=== PATIENT | male | born 1970 | race Caucasian/White ===

== ENCOUNTER 2019-03-14 17:12 | Emergency (ER) | payer OTHER ==
[~2019-03-14] VITALS: Ht 175.3 cm; Wt 86.4 kg
[~2019-03-14 17:12] MED LIST: ASPI-535 PO; GABA300C PO; GLIP10TA14 PO; INSU100C SC; LANT3I SC
[2019-03-14 17:14] VITALS: Ht 175.3 cm; Wt 86.4 kg
[2019-03-14] MEDS ORDERED: INSULIN LISPRO 100 UNIT/ML VIAL SC ONE (17:30)
[2019-03-14] MEDS ORDERED: ACCU-CHEK XX ONE (17:30)
--- NOTE | 2019-03-14 18:14 | ERD ---
ER Documentation Chief Complaint Chief Complaint PT STATES HE FEELS WEAK AND TIRED AND MIGHT HAVE HIGH SUGAR HPI This is a 48-year-old male who has a history of diabetes who was in [facility] for the past 48 hours. He did receive insulin yesterday but none today. He says that he feels like his blood sugars been high because he feels a bit weak. His fingerstick was elevated and he was sent here for medical clearance. He does not have any of the polys. Is no nausea vomiting no pain no dysuria no chest pain or shortness of breath, no signs of DKA ROS All systems reviewed and are negative except as per history of present illness. Medications Home Meds Reported Medications Insulin Lispro (Humalog) 100 U/Ml Cartridge, 1 UNITS SC sliding scale, EA 06/12/14 Insulin Glargine* (Lantus*) 100 Unit/Ml Soln, 50 UNIT SC HS, EA 06/12/14 Aspirin Ec (Aspir 81) 81 Mg Tablet.dr, 81 MG PO DAILY, TAB 06/12/14 Gabapentin* (Neurontin*) 300 Mg Capsule, 300 MG PO BID, CAP 06/12/14 Glipizide* (Glipizide*) 10 Mg Tablet, 10 MG PO BID, TAB 06/12/14 Allergies Allergies: Coded Allergies: Penicillins (Verified Allergy, Unknown, 06/12/14) PMhx/Soc History of Surgery: No Anesthesia Reaction: No Hx Neurological Disorder: No Hx Respiratory Disorders: No Hx Cardiac Disorders: No Hx Psychiatric Problems: No Hx Miscellaneous Medical Probl: Yes (DM) Hx Alcohol Use: Yes (liquor beer unknown date) Hx Substance Use: Yes (iv meth 3 weeks ago) Hx Tobacco Use: Yes (1pak/day) Smoking Status: Current every day smoker FmHx Family History: No coronary disease Physical Exam Vitals Vital Signs Date Temp Pulse Resp B/P (MAP) Pulse Ox O2 O2 Flow FiO2 Time Delivery Rate 03/14/19 98.7 80 16 131/77 98 17:14 (95) Physical Exam Const: Well-developed, well-nourished Head: Atraumatic, normocephalic Eyes: Normal Conjunctiva, PERRLA, EOMI, normal sclera, no nystagmus ENT: Normal External Ears, Nose and Mouth, moist mucus membranes. Neck: Full range of motion. No meningismus, no lymphadenopathy. Resp: Clear to auscultation bilaterally, no wheezing, rhonchi, rales Cardio: Regular rate and rhythm, no murmurs, S1 S2 present Abd: Soft, non tender x 4, non distended. Normal bowel sounds, no g uarding or rebound, no pulsitile abdominal masses or bruits Skin: No petechiae or rashes, no ecchymosis , no maculopapular rash Back: No midline or flank tenderness Ext: No cyanosis, or edema, FROM x 4, normal inspection, neurovascular ly intact x 4 Neur: Awake and alert, STR 5/5 x 4, sensation intact x 4, no focal findings, cerebellum intact Psych: Normal Mood and Affect Results 24 hrs Laboratory Tests Test 03/14/19 17:18 Bedside Glucose 518 mg/dL Current Medications Medications Dose Sig/Rena Start Time Status Last (Trade) Ordered Route PRN Stop Time Admin Dose Reason Admin Insulin 10 unit ONCE ONCE 03/14/19 DC 03/14/19 Human SC 17:30 17:36 Lispro 03/14/19 17:31 (Humalog) Diagnostic 1 ea 2 HRS AFTER 03/14/19 DC Test (Pha) HUMALOG ONCE 17:30 (Accu-Chek) XX 03/14/19 17:31 Procedures/MDM Patient's blood sugar is 518. He is given insulin subcutaneous. The patient's blood sugar is around 300 or less let him go and be discharged to [facility] the patient can receive insulin there Departure Diagnosis: Primary Impression: Hyperglycemia Condition: Stable JEFF LEDBETTER DO Mar 14, 2019 18:14
[2019-03-14 20:34] VITALS: BP 130/71; PULSE 71; RESP 19
== END 2019-03-14 20:35 ==
LOC: E/R 17:12
DX: E11.65 Type 2 diabetes mellitus with hyperglycemia (principal); F17.210 Nicotine dependence, cigarettes, uncomplicated; Z79.82 Long term (current) use of aspirin; Z79.4 Long term (current) use of insulin
CPT/HCPCS: 82962; 96372; 99284; J1815